=== PATIENT | female | born 1955 | race Hispanic/Latino ===

== ENCOUNTER 2022-10-07 12:49 | Emergency (ER) | payer OTHER ==
[~2022-10-07] VITALS: Ht 149.9 cm; Wt 68.0 kg
[2022-10-07 13:07] LABS: BASOPHILS % (AUTO) 0.1 % (0.0-5.0); EOSINOPHILS % (AUTO) 0.1 % (0.0-8.0); HEMATOCRIT 33.2 % (36-48); LYMPHOCYTES % (AUTO) 21.8 % (21.0-51.0); MEAN CORPUSCULAR HGB CONC 34.9 g/dL (32.0-36.0); MEAN CORPUSCULAR VOLUME 97.4 fL (79-99); MONOCYTES % (AUTO) 10.7 % (3.0-13.0); NEUTROPHILS % (AUTO) 66.8 % (40.0-77.0); PLATELET COUNT (AUTO) 219 K/uL (130-400); RED BLOOD CELL COUNT(AUTO) 3.41 MIL/uL (4.00-5.50); RED CELL DISTRIBUTION WIDTH 12.3 % (11.0-15.5); WHITE BLOOD COUNT (AUTO) 7.9 K/uL (4.8-10.8)
[2022-10-07 13:24] LABS: ALANINE AMINOTRANSFERASE 18 U/L (12-78); ALBUMIN 3.5 g/dL (3.5-5.0); ASPARTATE AMINOTRANSFERASE 12 U/L (10-37); CARBON DIOXIDE 27 mmol/L (21-32); CHLORIDE 104 mmol/L (101-111); GLOMERULAR FILTR. RATE CALC 61 mL/min (>90); GLUCOSE,RANDOM 125 mg/dL (70-105); POTASSIUM 3.7 mmol/L (3.5-5.1); SODIUM SERUM 139 mmol/L (136-145); TOTAL PROTEIN, SERUM 7.3 g/dL (6.0-8.3); UREA NITROGEN, BLOOD 22 mg/dL (7-18)
[2022-10-07 13:39] LABS: ACETAMINOPHEN < 1 mcg/mL (10-30); SALICYLATE < 2.8 mg/dL (2.8-20.0)
[2022-10-07 14:00] VITALS: BP 124/70
[2022-10-07 14:12] LABS: APPEARANCE,URINE CLEAR (CLEAR); BILIRUBIN,URINE NEGATIVE (NEGATIVE); COLOR,URINE COLORLESS (YELLOW); GLUCOSE, URINE (UA) >=1000 mg/dL (NEGATIVE); KETONES,URINE NEGATIVE (NEGATIVE); LEUKOCYTE ESTERASE ,URINE NEGATIVE Leu/uL (NEGATIVE); NITRATE,URINE NEGATIVE (NEGATIVE); OCCULT BLOOD,URINE NEGATIVE (NEGATIVE); PH,URINE 5.5 (5.0-8.0); PROTEIN,URINE NEGATIVE (NEGATIVE); UROBILINOGEN,URINE 0.2 mg/dL (0.2-1.0)
[2022-10-07 14:27] LABS: BACTERIA,URINE RARE /HPF (None Seen); MUCUS,URINE RARE LPF (None Seen); RBC,URINE 0-1 /HPF (0-1); SQUAMOUS EPITHELIAL CELL,UR RARE /HPF (0-2)
== END 2022-10-07 14:26 | disposition home or self-care (01) ==
LOC: EDH 12:49
DX: F20.9 Schizophrenia, unspecified (principal); Z20.822 Contact with and (suspected) exposure to COVID-19; Z02.89 Encounter for other administrative examinations
CPT/HCPCS: 99284; 87635; 80053; 85025; 36415; 93005; 81001; G0481; C9803

== ENCOUNTER 2022-12-26 20:05 | Emergency (ER) | payer OTHER ==
[~2022-12-26] VITALS: Ht 149.9 cm; Wt 63.0 kg
[~2022-12-26 20:05] MED LIST: ACET325T51 PO; LEVO125C4 PO; OMEP40CA21 PO
[2022-12-26 21:31] LABS: BASOPHILS % (AUTO) 0.3 % (0.0-5.0); EOSINOPHILS % (AUTO) 0.1 % (0.0-8.0); HEMATOCRIT 35.7 % (36-48); LYMPHOCYTES % (AUTO) 20.9 % (21.0-51.0); MEAN CORPUSCULAR HEMOGLOBIN 31.7 pg (27.0-33.0); MEAN CORPUSCULAR HGB CONC 33.6 g/dL (32.0-36.0); MEAN CORPUSCULAR VOLUME 94.2 fL (79-99); MONOCYTES % (AUTO) 11.1 % (3.0-13.0); NEUTROPHILS % (AUTO) 67.2 % (40.0-77.0); PLATELET COUNT (AUTO) 339 K/uL (130-400); RED BLOOD CELL COUNT(AUTO) 3.79 MIL/uL (4.00-5.50); RED CELL DISTRIBUTION WIDTH 12.3 % (11.0-15.5); WHITE BLOOD COUNT (AUTO) 11.4 K/uL (4.8-10.8)
[2022-12-26 21:43] LABS: APPEARANCE,URINE CLEAR (CLEAR); BILIRUBIN,URINE NEGATIVE (NEGATIVE); COLOR,URINE COLORLESS (YELLOW); GLUCOSE, URINE (UA) TRACE mg/dL (NEGATIVE); KETONES,URINE NEGATIVE (NEGATIVE); LEUKOCYTE ESTERASE ,URINE 25 Leu/uL (NEGATIVE); NITRATE,URINE NEGATIVE (NEGATIVE); OCCULT BLOOD,URINE NEGATIVE (NEGATIVE); PH,URINE 5.5 (5.0-8.0); PROTEIN,URINE NEGATIVE (NEGATIVE); UROBILINOGEN,URINE 0.2 mg/dL (0.2-1.0)
[2022-12-26 21:47] LABS: INR 0.95 (0.85-1.15); PROTHROMBIN TIME 10.4 SEC (9.6-11.6)
[2022-12-26 21:48] LABS: PARTIAL THROMBOPLASTIN TIME 23.6 SEC (26.3-35.5)
[2022-12-26 21:49] LABS: BACTERIA,URINE FEW /HPF (None Seen); RBC,URINE 0-1 /HPF (0-1); SQUAMOUS EPITHELIAL CELL,UR RARE /HPF (0-2)
[2022-12-26 21:51] LABS: CARBON DIOXIDE 22 mmol/L (21-32); CHLORIDE 101 mmol/L (101-111); CREATININE 0.9 mg/dL (0.5-1.5); GLOMERULAR FILTR. RATE CALC 70 mL/min (>90); GLUCOSE,RANDOM 97 mg/dL (70-105); POTASSIUM 3.4 mmol/L (3.5-5.1); SODIUM SERUM 136 mmol/L (136-145); UREA NITROGEN, BLOOD 21 mg/dL (7-18)
[2022-12-26 22:00] LABS: ALANINE AMINOTRANSFERASE 34 U/L (12-78); ASPARTATE AMINOTRANSFERASE 15 U/L (10-37); CREATINE KINASE, TOTAL 179 U/L (21-232)
[2022-12-26 22:01] LABS: ACETAMINOPHEN < 1 mcg/mL (10-30); SALICYLATE < 2.8 mg/dL (2.8-20.0)
[2022-12-26 22:02] LABS: B-TYPE NATRIURETIC PEPTIDE 21 pg/mL (0-100)
[2022-12-26] MEDS ORDERED: QUETIAPINE FUMARATE 100 MG TAB PO SCH (22:30)
[2022-12-26] MEDS ORDERED: MELO-108 PO (23:02)
[2022-12-26] MEDS ORDERED: DIVA-76 PO (23:02)
[2022-12-26] MEDS ORDERED: OLAN10TA73 PO (23:02)
[2022-12-26] MEDS ORDERED: OXYB10TA30 PO (23:02)
[2022-12-26] MEDS ORDERED: MONT-39 PO (23:02)
[2022-12-26] MEDS ORDERED: GABA600T10 PO (23:02)
[2022-12-26] MEDS ORDERED: PROG100C11 PO (23:02)
[2022-12-26] MEDS ORDERED: ALEN70TA80 PO (23:02)
[2022-12-26] MEDS ORDERED: LOSA50TA64 PO (23:02)
[2022-12-26] MEDS ORDERED: VIBE75TA PO (23:02)
[2022-12-26] MEDS ORDERED: EMPA10TA PO (23:02)
[2022-12-26] MEDS ORDERED: BUSP30TA2 PO (23:02)
[2022-12-26] MEDS ORDERED: METF-444 PO (23:02)
[2022-12-26] MEDS ORDERED: ICOS1CAP PO (23:02)
[2022-12-27] MEDS ORDERED: QUET100T PO (02:30)
[2022-12-27] MEDS ORDERED: HALOPERIDOL INJ 5 MG/ML VIAL ONE (05:14)
[2022-12-27] MEDS ORDERED: DiphenhydrAMINE HCL 50 MG/ML VIAL ONE (05:14)
[2022-12-27] MEDS ORDERED: LORAZEPAM 2 MG/ML 1 ML VIAL ONE (05:15)
[2022-12-27] MEDS ORDERED: HALOPERIDOL INJ 5 MG/ML VIAL IV SCH (05:30)
[2022-12-27] MEDS ORDERED: DiphenhydrAMINE HCL 50 MG/ML VIAL IVP ONE (05:30)
[2022-12-27] MEDS ORDERED: LORAZEPAM 2 MG/ML 1 ML VIAL IVP ONE (05:30)
[2022-12-27] MEDS ORDERED: MELA3TAB41 PO (06:27)
[2022-12-27] MEDS ORDERED: ESCI-8 PO (06:27)
[2022-12-27] MEDS ORDERED: OLAN2.5T29 PO (06:27)
[2022-12-27] MEDS ORDERED: OLAN5TAB76 PO (06:27)
[2022-12-27] MEDS ORDERED: NITROFURANTOIN MONOHYD/M-CRYST 100 MG CAPSULE PO SCH (09:00)
[2022-12-27 12:49] VITALS: BP 132/84
[2022-12-27] MEDS ORDERED: MACR100 PO (13:04)
[2022-12-27] MEDS ORDERED: DIPH-1242 PO (13:04)
== END 2022-12-27 13:24 | disposition home or self-care (01) ==
LOC: EDH 20:05
DX: F20.9 Schizophrenia, unspecified (principal); E11.9 Type 2 diabetes mellitus without complications; E03.9 Hypothyroidism, unspecified; F31.9 Bipolar disorder, unspecified; Z88.8 Allergy status to other drugs, medicaments and biological substances; Z79.899 Other long term (current) drug therapy
CPT/HCPCS: 99285; 71045; 82550; 84484; 80053; 83880; 85025; 85610; 85730; 87040 ×2; 87088; 83605; 80178; 36415; 81001; 96374; 96375; G0481; J1200; J1630; J2060